=== PATIENT | male | born 1945 | race Two or more races ===

== ENCOUNTER → 2022-07-21 06:00 | Outpatient (CLI) | payer OTHER ==
[~2022-07-21] VITALS: Ht 172.7 cm; Wt 56.7 kg
[~2022-07-21 06:00] MED LIST: ACID REDUCER20 M1 PO; AMBIEN10 MG PO; CARVEDILOL12.5 MG; GLIPIZIDE XL5 MG PO; LIPITOR20 MG PO; NORVASC5 MG PO; PEPCID AC10 MG PO; ZESTRIL40 M1 PO
== END | disposition home or self-care (01) ==
LOC: LAB 06:00 → SURG 07-25 09:15 → EDSTATUS 07-25 09:15
PROVIDERS: ATTEND Colon & Rectal Surgery
DX: Z03.818 Encounter for observation for suspected exposure to other biological agents ruled out (principal); Z20.822 Contact with and (suspected) exposure to COVID-19

== ENCOUNTER → 2022-09-06 06:00 | Outpatient (CLI) | payer OTHER ==
[~2022-09-06] VITALS: Ht 170.2 cm; Wt 56.7 kg
== END | disposition home or self-care (01) ==
LOC: LAB 06:00 → EDSTATUS 09-12 10:45 → SURG 09-12 10:45
PROVIDERS: ATTEND Colon & Rectal Surgery
DX: I10 Essential (primary) hypertension (principal); Z03.818 Encounter for observation for suspected exposure to other biological agents ruled out; Z20.822 Contact with and (suspected) exposure to COVID-19

== ENCOUNTER 2022-10-19 11:58 | Inpatient (IN) | payer OTHER ==
[~2022-10-19] VITALS: Ht 172.7 cm; Wt 56.7 kg
[2022-10-25 15:26] LABS: HEMOGLOBIN 10.8 g/dL (13-16.00); MEAN CELL VOLUME 90.2 fL (80.0-100.00); MEAN CORPUSCULAR HEMOGLOBIN 29.6 pg (27.00-32.0); MEAN CORPUSCULAR HGB CONC 32.8 g/dl (32.0-36.0); RED BLOOD COUNT 3.66 M/uL (4.00-6.00); RED CELL DISTRIBUTION WIDTH 15.5 % (11.5-14.5)
[2022-10-25 15:27] LABS: PLATELET COUNT 100 K/uL (150-450)
[2022-10-26 06:40] LABS: HEMATOCRIT 30.8 % (39.0-48.0); HEMOGLOBIN 10.5 g/dL (13-16.00); MEAN CELL VOLUME 89.6 fL (80.0-100.00); MEAN CORPUSCULAR HEMOGLOBIN 30.5 pg (27.00-32.0); RED BLOOD COUNT 3.44 M/uL (4.00-6.00); RED CELL DISTRIBUTION WIDTH 15.2 % (11.5-14.5)
[2022-10-26 06:48] LABS: PLATELET COUNT 85 K/uL (150-450)
[2022-10-26 07:12] LABS: ALBUMIN 2.9 gm/dL (3.4-5.0); CALCIUM 8.4 mg/dL (8.5-10.1); CREATININE SERUM 0.7 mg/dL (0.70-1.30); GFR 109.35; MAGNESIUM 1.8 mg/dL (1.8-2.4); PHOSPHOROUS 3.7 mg/dL (2.5-4.9); POTASSIUM 3.75 mEq/L (3.5-5.1)
[2022-10-29 02:30] LABS: ALBUMIN 2.9 gm/dL (3.4-5.0); CALCIUM 9.4 mg/dL (8.5-10.1); CREATININE SERUM 3.63 mg/dL (0.70-1.30); GFR 16.37; PHOSPHOROUS 4.7 mg/dL (2.5-4.9); POTASSIUM 4.39 mEq/L (3.5-5.1)
[2022-10-29 08:00] LABS: ABG PH 7.423 (7.35-7.45); ABG PO2 129.7 mmHg (80-100); ABG pCO2 32.8 mmHg (35-45)
[2022-10-29 08:01] LABS: BASE EXCESS -2.5 mmol/l; allen test SATISFACTORY; o2 100 %; puncture site RADIAL RIGHT
[2022-10-29 08:27] LABS: HEMATOCRIT 31.7 % (39.0-48.0); HEMOGLOBIN 10.8 g/dL (13-16.00); MEAN CELL VOLUME 89.8 fL (80.0-100.00); MEAN CORPUSCULAR HEMOGLOBIN 30.6 pg (27.00-32.0); MEAN CORPUSCULAR HGB CONC 34.1 g/dl (32.0-36.0); RED BLOOD COUNT 3.53 M/uL (4.00-6.00); RED CELL DISTRIBUTION WIDTH 16.2 % (11.5-14.5)
[2022-10-29 09:56] LABS: HEMATOCRIT 31.8 % (39.0-48.0); HEMOGLOBIN 10.1 g/dL (13-16.00); MEAN CELL VOLUME 91.8 fL (80.0-100.00); MEAN CORPUSCULAR HEMOGLOBIN 29.3 pg (27.00-32.0); MEAN CORPUSCULAR HGB CONC 31.9 g/dl (32.0-36.0); RED BLOOD COUNT 3.46 M/uL (4.00-6.00); RED CELL DISTRIBUTION WIDTH 16.4 % (11.5-14.5)
[2022-10-29 10:00] LABS: PLATELET COUNT 119 K/uL (150-450)
[2022-10-29 10:47] LABS: PLATELET COUNT 109 K/uL (150-450)
[2022-10-29 15:42] LABS: MEAN CELL VOLUME 90.5 fL (80.0-100.00); MEAN CORPUSCULAR HEMOGLOBIN 29.1 pg (27.00-32.0); MEAN CORPUSCULAR HGB CONC 32.1 g/dl (32.0-36.0)
[2022-10-29 15:49] LABS: PLATELET COUNT 113 K/uL (150-450)
[2022-10-29 18:44] LABS: URINE APPEARANCE Cloudy; URINE BILIRRUBIN Negative (NEGATIVE); URINE BLOOD Moderate; URINE COLOR Yellow; URINE GLUCOSE Negative (NEGATIVE); URINE LEUKOCYTE Negative; URINE NITRATE Negative; URINE PROTEIN 30 (NEGATIVE); URINE UROBILINOGEN 0.2 E.U./dl
[2022-10-29 18:45] LABS: URINE BACTERIA 32.6 uL (0.0-1933); URINE EPITHELIAL CELLS 23.3 uL (0.0-38.8); URINE RBC 36.3 uL (0.0-20.8); URINE WBC 7.6 uL (0.0-23.2)
[2022-10-29 19:05] LABS: URINE CRYSTALS MANY /HPF
[2022-10-29 19:06] LABS: URINE YEAST FEW /hpf
[2022-10-29 19:18] LABS: ABG PO2 108.5 mmHg (80-100); ABG pCO2 31.5 mmHg (35-45); BASE EXCESS -1.5 mmol/l; BICARBONATE 21.4 mmol/l (23-25); SaO2 98.4 %; Tco2 22.4 mmol/l
[2022-10-29 19:19] LABS: allen test SATISFACTORY; o2 50 %; puncture site RADIAL RIGHT
[2022-10-29 19:54] LABS: HEMATOCRIT 30.4 % (39.0-48.0); HEMOGLOBIN 10.1 g/dL (13-16.00); MEAN CELL VOLUME 89.4 fL (80.0-100.00); MEAN CORPUSCULAR HEMOGLOBIN 29.7 pg (27.00-32.0); MEAN CORPUSCULAR HGB CONC 33.3 g/dl (32.0-36.0); RED CELL DISTRIBUTION WIDTH 16.1 % (11.5-14.5)
[2022-10-29 19:55] LABS: PLATELET COUNT 129 K/uL (150-450)
[2022-10-30 06:51] LABS: PLT IN CITRATE 96 K/uL (150-450)
[2022-10-30 06:59] LABS: HEMATOCRIT 25.1 % (39.0-48.0); MEAN CELL VOLUME 91.1 fL (80.0-100.00); MEAN CORPUSCULAR HGB CONC 32.1 g/dl (32.0-36.0); RED BLOOD COUNT 2.75 M/uL (4.00-6.00)
[2022-10-30 07:06] LABS: HEMOGLOBIN 8.1 g/dL (13-16.00); MEAN CORPUSCULAR HEMOGLOBIN 29.4 pg (27.00-32.0); PLATELET COUNT 107 K/uL (150-450)
[2022-10-30 07:22] LABS: BILIRUBIN TOTAL 0.7 mg/dL (0.3-1.2); CALCIUM 7.5 mg/dL (8.5-10.1); CREATININE SERUM 2.43 mg/dL (0.70-1.30); GFR 26.01; GLOBULINA 2.6 G/DL (2.4-3.5); POTASSIUM 3.32 mEq/L (3.5-5.1); TOTAL PROTEIN 4.6 gm/dL (6.4-8.2)
[2022-10-30 14:22] LABS: URINE APPEARANCE Turbid; URINE BILIRRUBIN Negative (NEGATIVE); URINE BLOOD Small; URINE COLOR Yellow; URINE LEUKOCYTE Negative; URINE NITRATE Negative; URINE PROTEIN 30 (NEGATIVE); URINE UROBILINOGEN 0.2 E.U./dl
[2022-10-30 14:23] LABS: URINE BACTERIA 61.6 uL (0.0-1933); URINE EPITHELIAL CELLS 12.8 uL (0.0-38.8); URINE RBC 31.7 uL (0.0-20.8); URINE WBC 8.9 uL (0.0-23.2)
[2022-10-30 14:50] LABS: URINE CRYSTALS MANY /HPF; URINE GLUCOSE 250 MG/DL (NEGATIVE)
[2022-10-31 07:28] LABS: HEMATOCRIT 27.3 % (39.0-48.0); MEAN CELL VOLUME 91.1 fL (80.0-100.00); MEAN CORPUSCULAR HEMOGLOBIN 29.9 pg (27.00-32.0); MEAN CORPUSCULAR HGB CONC 32.8 g/dl (32.0-36.0); PLATELET COUNT 144 K/uL (150-450); RED CELL DISTRIBUTION WIDTH 16.2 % (11.5-14.5)
[2022-10-31 07:30] LABS: ALBUMIN 2.2 gm/dL (3.4-5.0); CALCIUM 8.1 mg/dL (8.5-10.1); CREATININE SERUM 1.15 mg/dL (0.70-1.30); GFR 61.66; MAGNESIUM 2.8 mg/dL (1.8-2.4); POTASSIUM 4.02 mEq/L (3.5-5.1)
[2022-10-31 08:24] LABS: PHOSPHOROUS 1.2 mg/dL (2.5-4.9)
[2022-10-31 08:25] LABS: BILIRUBIN TOTAL 0.54 mg/dL (0.3-1.2); C-REACTIVE PROTEIN 28.5 MG/DL (0.00-0.29); GLOBULINA 3.2 G/DL (2.4-3.5); TOTAL PROTEIN 5.4 gm/dL (6.4-8.2)
[2022-10-31 10:37] LABS: ALBUMIN 2.3 gm/dL (3.4-5.0); BILIRUBIN TOTAL 0.52 mg/dL (0.3-1.2); CALCIUM 8.4 mg/dL (8.5-10.1); CREATININE SERUM 1.12 mg/dL (0.70-1.30); GFR 63.57; GLOBULINA 3.3 G/DL (2.4-3.5); POTASSIUM 4.16 mEq/L (3.5-5.1); TOTAL PROTEIN 5.6 gm/dL (6.4-8.2)
[2022-10-31 11:39] LABS: PHOSPHOROUS 1.1 mg/dL (2.5-4.9)
[2022-11-01 06:49] LABS: HEMATOCRIT 26.8 % (39.0-48.0); MEAN CELL VOLUME 90.7 fL (80.0-100.00); MEAN CORPUSCULAR HEMOGLOBIN 30.4 pg (27.00-32.0); MEAN CORPUSCULAR HGB CONC 33.6 g/dl (32.0-36.0); PLATELET COUNT 171 K/uL (150-450); RED BLOOD COUNT 2.96 M/uL (4.00-6.00); RED CELL DISTRIBUTION WIDTH 16.6 % (11.5-14.5)
[2022-11-01 07:14] LABS: CALCIUM 8.2 mg/dL (8.5-10.1); CREATININE SERUM 0.81 mg/dL (0.70-1.30); GFR 92.4; POTASSIUM 4.36 mEq/L (3.5-5.1)
[2022-11-02 08:14] LABS: CALCIUM 8.3 mg/dL (8.5-10.1); CREATININE SERUM 0.85 mg/dL (0.70-1.30); GFR 87.4; POTASSIUM 3.81 mEq/L (3.5-5.1)
[2022-11-03 07:04] LABS: HEMATOCRIT 31.5 % (39.0-48.0); HEMOGLOBIN 10.3 g/dL (13-16.00); MEAN CELL VOLUME 91.2 fL (80.0-100.00); MEAN CORPUSCULAR HEMOGLOBIN 29.7 pg (27.00-32.0); MEAN CORPUSCULAR HGB CONC 32.6 g/dl (32.0-36.0); PLATELET COUNT 215 K/uL (150-450); RED BLOOD COUNT 3.45 M/uL (4.00-6.00); RED CELL DISTRIBUTION WIDTH 16.3 % (11.5-14.5)
[2022-11-04 08:06] LABS: ALBUMIN 2.1 gm/dL (3.4-5.0); BILIRUBIN TOTAL 0.72 mg/dL (0.3-1.2); CALCIUM 8.2 mg/dL (8.5-10.1); CREATININE SERUM 0.74 mg/dL (0.70-1.30); GFR 102.56; GLOBULINA 3.3 G/DL (2.4-3.5); POTASSIUM 4.45 mEq/L (3.5-5.1); TOTAL PROTEIN 5.4 gm/dL (6.4-8.2)
[2022-11-04 08:11] LABS: HEMATOCRIT 29.9 % (39.0-48.0); HEMOGLOBIN 9.7 g/dL (13-16.00); MEAN CORPUSCULAR HEMOGLOBIN 29.6 pg (27.00-32.0); MEAN CORPUSCULAR HGB CONC 32.6 g/dl (32.0-36.0); PLATELET COUNT 195 K/uL (150-450); RED BLOOD COUNT 3.29 M/uL (4.00-6.00)
[2022-11-06 14:13] LABS: HEMATOCRIT 32.6 % (39.0-48.0); HEMOGLOBIN 10.9 g/dL (13-16.00); MEAN CELL VOLUME 90.4 fL (80.0-100.00); MEAN CORPUSCULAR HEMOGLOBIN 30.1 pg (27.00-32.0); MEAN CORPUSCULAR HGB CONC 33.3 g/dl (32.0-36.0); PLATELET COUNT 227 K/uL (150-450); RED BLOOD COUNT 3.61 M/uL (4.00-6.00); RED CELL DISTRIBUTION WIDTH 15.8 % (11.5-14.5)
[2022-11-07 07:28] LABS: PLATELET ESTIMATE NORMAL (NORMAL)
[2022-11-07 07:44] LABS: HEMATOCRIT 29.6 % (39.0-48.0); MEAN CELL VOLUME 90.2 fL (80.0-100.00); MEAN CORPUSCULAR HGB CONC 32.6 g/dl (32.0-36.0); PLATELET COUNT 198 K/uL (150-450); RED BLOOD COUNT 3.28 M/uL (4.00-6.00)
[2022-11-07 07:46] LABS: HEMOGLOBIN 9.7 g/dL (13-16.00); MEAN CORPUSCULAR HEMOGLOBIN 29.5 pg (27.00-32.0)
[2022-11-07 08:18] LABS: ALBUMIN 2.3 gm/dL (3.4-5.0); BILIRUBIN TOTAL 0.55 mg/dL (0.3-1.2); CALCIUM 8.5 mg/dL (8.5-10.1); CREATININE SERUM 0.73 mg/dL (0.70-1.30); GFR 104.18; GLOBULINA 3.5 G/DL (2.4-3.5); MAGNESIUM 1.7 mg/dL (1.8-2.4); PHOSPHOROUS 3.4 mg/dL (2.5-4.9); POTASSIUM 3.85 mEq/L (3.5-5.1); TOTAL PROTEIN 5.8 gm/dL (6.4-8.2)
[2022-11-07 08:20] LABS: C-REACTIVE PROTEIN 4.82 MG/DL (0.00-0.29)
[2022-11-07 08:56] LABS: PLATELET ESTIMATE NORMAL (NORMAL)
[2022-11-08 08:52] LABS: HEMOGLOBIN 9.3 g/dL (13-16.00); MEAN CELL VOLUME 90.2 fL (80.0-100.00); MEAN CORPUSCULAR HEMOGLOBIN 29.8 pg (27.00-32.0); PLATELET COUNT 172 K/uL (150-450); RED BLOOD COUNT 3.11 M/uL (4.00-6.00); RED CELL DISTRIBUTION WIDTH 15.9 % (11.5-14.5)
[2022-11-10 11:47] LABS: HEMATOCRIT 30.1 % (39.0-48.0); HEMOGLOBIN 9.8 g/dL (13-16.00); MEAN CELL VOLUME 91.2 fL (80.0-100.00); MEAN CORPUSCULAR HEMOGLOBIN 29.7 pg (27.00-32.0); MEAN CORPUSCULAR HGB CONC 32.6 g/dl (32.0-36.0); PLATELET COUNT 168 K/uL (150-450); RED CELL DISTRIBUTION WIDTH 16.2 % (11.5-14.5)
[2022-11-10 12:05] LABS: ALBUMIN 2.5 gm/dL (3.4-5.0); BILIRUBIN TOTAL 0.54 mg/dL (0.3-1.2); CALCIUM 8.8 mg/dL (8.5-10.1); CREATININE SERUM 0.72 mg/dL (0.70-1.30); GFR 105.85; GLOBULINA 3.1 G/DL (2.4-3.5); MAGNESIUM 1.6 mg/dL (1.8-2.4); PHOSPHOROUS 2.9 mg/dL (2.5-4.9); POTASSIUM 4.27 mEq/L (3.5-5.1); TOTAL PROTEIN 5.6 gm/dL (6.4-8.2)
[2022-11-11 13:11] LABS: quan ag 0.03 IU/mL (.); quan ag 0.04 IU/mL (.); quan mito 1.82 IU/mL (.); quant nil 0.01 IU/mL (.)
[2022-11-13 07:22] LABS: HEMATOCRIT 26.3 % (39.0-48.0); MEAN CELL VOLUME 90.2 fL (80.0-100.00); MEAN CORPUSCULAR HEMOGLOBIN 31.2 pg (27.00-32.0); MEAN CORPUSCULAR HGB CONC 34.6 g/dl (32.0-36.0); PLATELET COUNT 145 K/uL (150-450); RED BLOOD COUNT 2.91 M/uL (4.00-6.00); RED CELL DISTRIBUTION WIDTH 17.1 % (11.5-14.5)
[2022-11-13 07:23] LABS: HEMOGLOBIN 9.1 g/dL (13-16.00)
[2022-11-13 07:53] LABS: CALCIUM 8.4 mg/dL (8.5-10.1); CREATININE SERUM 0.58 mg/dL (0.70-1.30); GFR 135.85; POTASSIUM 4.18 mEq/L (3.5-5.1)
== END 2022-11-15 14:28 | disposition home or self-care (01) | DRG 329 ==
LOC: SURG 10-25 07:00 → O/R 10-25 07:02 → SURG 10-25 12:45 → ICU 10-29 19:47 → SURH 11-01 19:55 → MEDJ 11-07 15:43
PROVIDERS: Internal Medicine; Internal Medicine Critical Care Medicine; Internal Medicine Infectious Disease; Internal Medicine Nephrology; Surgery; ADMIT Colon & Rectal Surgery; ATTEND Colon & Rectal Surgery
PROC: 0DBP4ZZ Excision of Rectum, Percutaneous Endoscopic Approach (ICD-10-PCS; 2022-10-25)
PROC: 07BC4ZX Excision of Pelvis Lymphatic, Percutaneous Endoscopic Approach, Diagnostic (ICD-10-PCS; 2022-10-25)
PROC: 0D1B4Z4 Bypass Ileum to Cutaneous, Percutaneous Endoscopic Approach (ICD-10-PCS; 2022-10-25)
PROC: 0DTN8ZZ Resection of Sigmoid Colon, Via Natural or Artificial Opening Endoscopic (ICD-10-PCS; principal; 2022-10-25 07:00)
PROC: 0D9670Z Drainage of Stomach with Drainage Device, Via Natural or Artificial Opening (ICD-10-PCS; 2022-10-29)
PROC: 3E0G76Z Introduction of Nutritional Substance into Upper GI, Via Natural or Artificial Opening (ICD-10-PCS; 2022-10-29)
PROC: B24BYZZ Ultrasonography of Heart with Aorta using Other Contrast (ICD-10-PCS; 2022-10-29)
PROC: 4A12X4Z Monitoring of Cardiac Electrical Activity, External Approach (ICD-10-PCS; 2022-11-01)
PROC: BW21YZZ Computerized Tomography (CT Scan) of Abdomen and Pelvis using Other Contrast (ICD-10-PCS; 2022-11-06)
PROC: BW24ZZZ Computerized Tomography (CT Scan) of Chest and Abdomen (ICD-10-PCS; 2022-11-06)
PROC: BW20ZZZ Computerized Tomography (CT Scan) of Abdomen (ICD-10-PCS; 2022-11-10)
PROC: BW24ZZZ Computerized Tomography (CT Scan) of Chest and Abdomen (ICD-10-PCS; 2022-11-10)
PROC: BT04ZZZ Plain Radiography of Kidneys, Ureters and Bladder (ICD-10-PCS; 2022-11-10)
DX: C20 Malignant neoplasm of rectum (principal); A41.9 Sepsis, unspecified organism; J69.0 Pneumonitis due to inhalation of food and vomit; K92.1 Melena; N17.9 Acute kidney failure, unspecified; T81.44XA Sepsis following a procedure, initial encounter; K92.2 Gastrointestinal hemorrhage, unspecified; A31.9 Mycobacterial infection, unspecified; R06.02 Shortness of breath; R33.9 Retention of urine, unspecified; I95.9 Hypotension, unspecified; D72.829 Elevated white blood cell count, unspecified; Y65.8 Other specified misadventures during surgical and medical care; R34 Anuria and oliguria; B96.89 Other specified bacterial agents as the cause of diseases classified elsewhere; E11.9 Type 2 diabetes mellitus without complications; Z79.4 Long term (current) use of insulin; B96.7 Clostridium perfringens [C. perfringens] as the cause of diseases classified elsewhere

== ENCOUNTER 2023-08-02 10:55 | Inpatient (IN) | payer OTHER ==
[~2023-08-02] VITALS: Ht 170.2 cm; Wt 60.3 kg
[2023-08-08] MEDS ORDERED: DONEPEZIL HCL5 MG (13:27)
[2023-08-08] MEDS ORDERED: OMEPRAZOLE40 MG (13:27)
[2023-08-08] MEDS ORDERED: TAMSULOSIN HCL0.4 MG (13:27)
[2023-08-08] MEDS ORDERED: DEXTROSE 50 % IN WATER 0.5 G/ML VIAL IV PRN (14:00)
[2023-08-08] MEDS ORDERED: ACETAMINOPHEN 500 MG GEL..CAP PO SCH (14:00)
[2023-08-08] MEDS ORDERED: OxyCODONE HCL 5 MG TABLET (ROXICODONE) PO PRN (14:00)
[2023-08-08] MEDS ORDERED: RINGERS SOLUTION,LACTATED 1,000 ML IV SCH (14:00)
[2023-08-08] MEDS ORDERED: MORPHINE SULFATE 4 MG/ML CARTRIDGE IV PRN (14:00)
[2023-08-08] MEDS ORDERED: ONDANSETRON HCL 2 MG/ML VIAL IV PRN (14:00)
[2023-08-08] MEDS ORDERED: CEFTRIAXONE SODIUM 2,000 MG VIAL IV ONE (14:15)
[2023-08-08] MEDS ORDERED: METRONIDAZOLE/SODIUM CHLORIDE 500 MG/100 ML PIGGYBACK IV ONE (14:15)
[2023-08-08] MEDS ORDERED: CHLORHEXIDINE GLUCONATE 120 ML BOTTLE TOP ONE (14:15)
[2023-08-08 16:56] LABS: HEMATOCRIT 28.1 % (39.0-48.0); HEMOGLOBIN 9.5 g/dL (13-16.00); MEAN CELL VOLUME 95.2 fL (80.0-100.00); MEAN CORPUSCULAR HEMOGLOBIN 32.1 pg (27.00-32.0); MEAN CORPUSCULAR HGB CONC 33.7 g/dl (32.0-36.0); RED BLOOD COUNT 2.95 M/uL (4.00-6.00); RED CELL DISTRIBUTION WIDTH 17.5 % (11.5-14.5)
[2023-08-08] MEDS ORDERED: SIMETHICONE 125 MG CAPSULE PO SCH (17:00)
[2023-08-08] MEDS ORDERED: METOCLOPRAMIDE HCL 5 MG/ML VIAL IV SCH (17:00)
[2023-08-08] MEDS ORDERED: POLYETHYLENE GLYCOL 3350 17 GM BLIST.PACK PO SCH (17:00)
[2023-08-08] MEDS ORDERED: CELECOXIB 200 MG CAPSULE PO SCH (17:00)
[2023-08-08] MEDS ORDERED: GABAPENTIN 300 MG CAPSULE PO SCH (17:00)
[2023-08-08] MEDS ORDERED: CARVEDILOL 12.5 MG TABLET PO SCH (17:00)
[2023-08-08] MEDS ORDERED: HYOSCYAMINE SULFATE 0.125 MG TAB.SUBL SL SCH (17:00)
[2023-08-08 17:47] LABS: PLATELET COUNT 72 K/uL (150-450)
[2023-08-08] MEDS ORDERED: FAMOTIDINE/PF 20 MG/2 ML VIAL IV PUSH SCH (21:00)
[2023-08-09 07:51] LABS: HEMATOCRIT 23.7 % (39.0-48.0); MEAN CELL VOLUME 94.3 fL (80.0-100.00); MEAN CORPUSCULAR HGB CONC 33.4 g/dl (32.0-36.0); RED BLOOD COUNT 2.51 M/uL (4.00-6.00); RED CELL DISTRIBUTION WIDTH 17.5 % (11.5-14.5)
[2023-08-09 07:55] LABS: ALBUMIN 3.2 gm/dL (3.4-5.0); CALCIUM 8.4 mg/dL (8.5-10.1); CREATININE SERUM 0.79 mg/dL (0.70-1.30); GFR 94.86; PHOSPHOROUS 3.8 mg/dL (2.5-4.9); POTASSIUM 3.55 mEq/L (3.5-5.1)
[2023-08-09 08:01] LABS: MAGNESIUM 1.4 mg/dL (1.8-2.4)
[2023-08-09 08:48] LABS: MEAN CORPUSCULAR HEMOGLOBIN 31.4 pg (27.00-32.0); PLATELET COUNT 53 K/uL (150-450)
[2023-08-09] MEDS ORDERED: LACTULOSE 20 G/30 ML BLIST.PACK PO SCH (09:00)
[2023-08-09] MEDS ORDERED: LISINOPRIL 40 MG TABLET PO SCH (09:00)
[2023-08-09] MEDS ORDERED: LACTOBACILLUS ACIDOPHILUS 1 CAP CAP PO SCH (09:00)
[2023-08-09] MEDS ORDERED: AMLODIPINE BESYLATE 5 MG TABLET PO SCH (09:00)
[2023-08-09 09:14] LABS: HEMOGLOBIN 7.9 g/dL (13-16.00)
[2023-08-09] MEDS ORDERED: FUROsemide 20 MG/2 ML VIAL IV SCH (09:30)
[2023-08-09] MEDS ORDERED: ENOXAPARIN SODIUM 40 MG/0.4 ML SYRINGE SUBCUTANEO SCH (17:00)
[2023-08-09] MEDS ORDERED: SOD FERRIC GLUC COMPLX/SUCROSE 62.5 MG in 0.9 % SODIUM CHLORIDE 50 ML IV SCH (17:00)
[2023-08-10 07:08] LABS: HEMATOCRIT 31.5 % (39.0-48.0); HEMOGLOBIN 10.9 g/dL (13-16.00); MEAN CORPUSCULAR HEMOGLOBIN 31.6 pg (27.00-32.0); MEAN CORPUSCULAR HGB CONC 34.7 g/dl (32.0-36.0); RED BLOOD COUNT 3.46 M/uL (4.00-6.00); RED CELL DISTRIBUTION WIDTH 16.5 % (11.5-14.5)
[2023-08-10 07:48] LABS: PLATELET COUNT 57 K/uL (150-450)
[2023-08-10] MEDS ORDERED: Cyanocobalamin/Mecobalamin 1 TAB.SL SL SCH (09:00)
[2023-08-10] MEDS ORDERED: ENOXAPARIN SODIUM 40 MG/0.4 ML SYRINGE SUBCUTANEO SCH (09:00)
[2023-08-10] MEDS ORDERED: PANTOPRAZOLE SODIUM 40 MG/VIAL VIAL IV SCH (18:15)
[2023-08-11 08:41] LABS: CALCIUM 9.1 mg/dL (8.5-10.1); CREATININE SERUM 0.87 mg/dL (0.70-1.30); GFR 84.87; POTASSIUM 3.17 mEq/L (3.5-5.1)
[2023-08-11 09:44] LABS: HEMOGLOBIN 10.2 g/dL (13-16.00); MEAN CELL VOLUME 91.2 fL (80.0-100.00); MEAN CORPUSCULAR HGB CONC 33.9 g/dl (32.0-36.0); RED BLOOD COUNT 3.29 M/uL (4.00-6.00); RED CELL DISTRIBUTION WIDTH 16.8 % (11.5-14.5)
[2023-08-11] MEDS ORDERED: [UNRECOGNIZED DRUG - REMARK] IV SCH (10:30)
[2023-08-11 10:44] LABS: PLATELET COUNT 64 K/uL (150-450)
[2023-08-11] MEDS ORDERED: POTASSIUM CHLORIDE IN WATER 100 ML IV NR (11:12)
[2023-08-11] MEDS ORDERED: AMINO ACIDS 4.25 %/DEXTROSE 5% 1,000 ML PERIFERAL SCH (17:00)
[2023-08-11] MEDS ORDERED: ENALAPRILAT DIHYDRATE 1.25 MG/ML VIAL IV PRN (17:45)
[2023-08-11] MEDS ORDERED: PIPERACILLIN/TAZOBACTAM SODIUM 3.375 GM in DEXTROSE 5 % IN WATER 100 ML IV SCH (18:00)
[2023-08-12 07:43] LABS: CALCIUM 8.1 mg/dL (8.5-10.1); CREATININE SERUM 0.78 mg/dL (0.70-1.30); GFR 96.26; POTASSIUM 3.74 mEq/L (3.5-5.1)
[2023-08-13] MEDS ORDERED: DIATRIZOATE MEGLUMINE, SODIUM 30 ML BOTTLE PO NR (09:00)
[2023-08-13 09:23] LABS: MEAN CELL VOLUME 92.2 fL (80.0-100.00); MEAN CORPUSCULAR HGB CONC 34.2 g/dl (32.0-36.0); RED BLOOD COUNT 2.53 M/uL (4.00-6.00); RED CELL DISTRIBUTION WIDTH 16.5 % (11.5-14.5)
[2023-08-13 10:01] LABS: CALCIUM 8.3 mg/dL (8.5-10.1); CREATININE SERUM 0.74 mg/dL (0.70-1.30); GFR 102.29; MAGNESIUM 1.6 mg/dL (1.8-2.4); PHOSPHOROUS 2.2 mg/dL (2.5-4.9); POTASSIUM 3.72 mEq/L (3.5-5.1)
[2023-08-13 10:26] LABS: HEMATOCRIT 23.3 % (39.0-48.0); MEAN CORPUSCULAR HEMOGLOBIN 31.6 pg (27.00-32.0); PLATELET COUNT 66 K/uL (150-450)
[2023-08-13] MEDS ORDERED: FUROsemide 20 MG/2 ML VIAL IV SCH (14:30)
[2023-08-15 03:43] LABS: HEMATOCRIT 29.1 % (39.0-48.0); MEAN CELL VOLUME 90.6 fL (80.0-100.00); MEAN CORPUSCULAR HEMOGLOBIN 31.1 pg (27.00-32.0); MEAN CORPUSCULAR HGB CONC 34.3 g/dl (32.0-36.0); PLATELET COUNT 76 K/uL (150-450); RED BLOOD COUNT 3.21 M/uL (4.00-6.00); RED CELL DISTRIBUTION WIDTH 15.4 % (11.5-14.5)
[2023-08-15 03:56] LABS: ALBUMIN 2.8 gm/dL (3.4-5.0); BILIRUBIN TOTAL 1.73 mg/dL (0.3-1.2); CALCIUM 8.1 mg/dL (8.5-10.1); CREATININE SERUM 0.67 mg/dL (0.70-1.30); GFR 114.72; GLOBULINA 2.6 G/DL (2.4-3.5); POTASSIUM 3.18 mEq/L (3.5-5.1); TOTAL PROTEIN 5.4 gm/dL (6.4-8.2)
[2023-08-15] MEDS ORDERED: POTASSIUM CHLORIDE IN WATER 100 ML IV NR (07:45)
[2023-08-16 07:20] LABS: HEMATOCRIT 29.2 % (39.0-48.0); MEAN CELL VOLUME 92.6 fL (80.0-100.00); MEAN CORPUSCULAR HEMOGLOBIN 31.7 pg (27.00-32.0); MEAN CORPUSCULAR HGB CONC 34.2 g/dl (32.0-36.0); RED BLOOD COUNT 3.15 M/uL (4.00-6.00); RED CELL DISTRIBUTION WIDTH 15.3 % (11.5-14.5)
[2023-08-16 07:42] LABS: CALCIUM 8.2 mg/dL (8.5-10.1); CREATININE SERUM 0.67 mg/dL (0.70-1.30); GFR 114.72; MAGNESIUM 1.8 mg/dL (1.8-2.4); POTASSIUM 3.1 mEq/L (3.5-5.1)
[2023-08-16 08:02] LABS: PHOSPHOROUS 1.7 mg/dL (2.5-4.9)
[2023-08-16] MEDS ORDERED: POTASSIUM CHLORIDE IN WATER 100 ML IV NR (08:15)
[2023-08-16 08:59] LABS: PLATELET COUNT 100 K/uL (150-450)
[2023-08-16] MEDS ORDERED: POTASSIUM PHOS,M-BASIC-D-BASIC 3 MM/ML VIAL IV ONE (12:00)
[2023-08-17 06:14] LABS: HEMATOCRIT 26.7 % (39.0-48.0); MEAN CELL VOLUME 92.6 fL (80.0-100.00); MEAN CORPUSCULAR HGB CONC 33.5 g/dl (32.0-36.0); RED BLOOD COUNT 2.88 M/uL (4.00-6.00); RED CELL DISTRIBUTION WIDTH 15.4 % (11.5-14.5)
[2023-08-17 07:09] LABS: HEMOGLOBIN 8.9 g/dL (13-16.00); MEAN CORPUSCULAR HEMOGLOBIN 30.9 pg (27.00-32.0); PLATELET COUNT 124 K/uL (150-450)
[2023-08-17] MEDS ORDERED: PANTOPRAZOLE SODIUM 40 MG/VIAL VIAL IV SCH (08:00)
[2023-08-17] MEDS ORDERED: ZOLPIDEM TARTRATE 5 MG TABLET PO SCH (21:00)
[2023-08-18 11:35] LABS: HEMATOCRIT 28.3 % (39.0-48.0); MEAN CELL VOLUME 92.4 fL (80.0-100.00); RED BLOOD COUNT 3.06 M/uL (4.00-6.00); RED CELL DISTRIBUTION WIDTH 15.4 % (11.5-14.5)
[2023-08-18 12:20] LABS: HEMOGLOBIN 9.6 g/dL (13-16.00); MEAN CORPUSCULAR HEMOGLOBIN 31.3 pg (27.00-32.0)
[2023-08-18 12:21] LABS: PLATELET COUNT 133 K/uL (150-450)
[2023-08-18 12:52] LABS: CALCIUM 7.9 mg/dL (8.5-10.1); CREATININE SERUM 0.6 mg/dL (0.70-1.30); GFR 130.3; MAGNESIUM 1.9 mg/dL (1.8-2.4); PHOSPHOROUS 2.1 mg/dL (2.5-4.9); POTASSIUM 3.25 mEq/L (3.5-5.1)
[2023-08-18] MEDS ORDERED: SOD FERRIC GLUC COMPLX/SUCROSE 62.5 MG in 0.9 % SODIUM CHLORIDE 50 ML IV SCH (19:10)
[2023-08-18] MEDS ORDERED: Cyanocobalamin/Mecobalamin 1 TAB.SL SL SCH (19:11)
[2023-08-18] MEDS ORDERED: POTASSIUM CHLORIDE 20MEQ/100ML H2O PB IV ONE (19:15)
[2023-08-18] MEDS ORDERED: CLOTRIMAZOLE/BETAMETHASONE DIP 15 GM TUBE TOP SCH (19:15)
[2023-08-18] MEDS ORDERED: POTASSIUM PHOS,M-BASIC-D-BASIC 3 MM/ML VIAL IV ONE (19:15)
[2023-08-19 07:56] LABS: CALCIUM 7.8 mg/dL (8.5-10.1); CREATININE SERUM 0.66 mg/dL (0.70-1.30); GFR 116.73; MAGNESIUM 1.8 mg/dL (1.8-2.4); PHOSPHOROUS 2.4 mg/dL (2.5-4.9); POTASSIUM 3.54 mEq/L (3.5-5.1)
[2023-08-19 08:05] LABS: HEMATOCRIT 26.9 % (39.0-48.0); HEMOGLOBIN 9.2 g/dL (13-16.00); MEAN CELL VOLUME 93.5 fL (80.0-100.00); MEAN CORPUSCULAR HGB CONC 34.2 g/dl (32.0-36.0); PLATELET COUNT 137 K/uL (150-450); RED BLOOD COUNT 2.88 M/uL (4.00-6.00); RED CELL DISTRIBUTION WIDTH 15.5 % (11.5-14.5)
[2023-08-19] MEDS ORDERED: POTASSIUM PHOS,M-BASIC-D-BASIC 3 MM/ML VIAL IV NR (10:00)
[2023-08-20 06:56] LABS: HEMATOCRIT 25.5 % (39.0-48.0); MEAN CELL VOLUME 92.2 fL (80.0-100.00); MEAN CORPUSCULAR HGB CONC 34.2 g/dl (32.0-36.0); RED BLOOD COUNT 2.77 M/uL (4.00-6.00); RED CELL DISTRIBUTION WIDTH 15.6 % (11.5-14.5)
[2023-08-20 07:05] LABS: INR 1.08; PARTIAL THROMBOPLASTIN TIME 30.9 SECONDS (22.0-34.0); PROTHROMBIN TIME 11.3 SECONDS (9.0-11.5)
[2023-08-20 07:14] LABS: ALBUMIN 2.6 gm/dL (3.4-5.0); BILIRUBIN TOTAL 0.82 mg/dL (0.3-1.2); BILIRUBIN,CONJUGATED 0.35 mg/dL (0.0-0.2); BILIRUBIN,UNCONJUGATED 0.47 mg/dL (0.0-0.6); CALCIUM 7.9 mg/dL (8.5-10.1); CREATININE SERUM 0.68 mg/dL (0.70-1.30); GFR 112.78; GLOBULINA 2.6 G/DL (2.4-3.5); MAGNESIUM 1.5 mg/dL (1.8-2.4); POTASSIUM 3.21 mEq/L (3.5-5.1); TOTAL PROTEIN 5.2 gm/dL (6.4-8.2)
[2023-08-20 07:26] LABS: MEAN CORPUSCULAR HEMOGLOBIN 31.4 pg (27.00-32.0)
[2023-08-20 07:27] LABS: HEMOGLOBIN 8.7 g/dL (13-16.00); PLATELET COUNT 128 K/uL (150-450)
[2023-08-20] MEDS ORDERED: INTESTINEX680 M1 PO (08:51)
[2023-08-20] MEDS ORDERED: HYOSCYAMINE0.125 M1 SL (08:51)
[2023-08-20] MEDS ORDERED: CELEBREX200MG PO (08:52)
[2023-08-20] MEDS ORDERED: SIMETHICONE125 M1 PO (08:52)
[2023-08-20] MEDS ORDERED: HEMATOGEN FORT1 EACH PO (08:53)
[2023-08-20] MEDS ORDERED: POLY119PG PO (08:53)
== END 2023-08-20 16:16 | disposition home or self-care (01) | DRG 348 ==
LOC: O/R 08-08 06:49 → SURG 08-08 06:49 → LDR 08-08 11:00 → SURG 08-08 14:51
PROVIDERS: Internal Medicine; Internal Medicine Geriatric Medicine; Surgery; ADMIT Colon & Rectal Surgery; ATTEND Colon & Rectal Surgery
PROC: 0D9670Z Drainage of Stomach with Drainage Device, Via Natural or Artificial Opening (ICD-10-PCS; 2023-08-08)
PROC: 0DBB4ZZ Excision of Ileum, Percutaneous Endoscopic Approach (ICD-10-PCS; principal; 2023-08-08 12:45)
PROC: 30233N1 Transfusion of Nonautologous Red Blood Cells into Peripheral Vein, Percutaneous Approach (ICD-10-PCS; 2023-08-09)
PROC: BW21YZZ Computerized Tomography (CT Scan) of Abdomen and Pelvis using Other Contrast (ICD-10-PCS; 2023-08-13)
DX: C20 Malignant neoplasm of rectum (principal); K92.1 Melena; K66.0 Peritoneal adhesions (postprocedural) (postinfection); D64.9 Anemia, unspecified; I10 Essential (primary) hypertension